=== PATIENT | female | born 1970 | race Two or more races ===

== ENCOUNTER 2024-07-06 06:12 | Outpatient (CLI) | payer OTHER ==
[2024-07-06 07:13] LABS: URINE APPEARANCE Clear; URINE BILIRRUBIN Negative (NEGATIVE); URINE BLOOD Negative; URINE COLOR Yellow; URINE GLUCOSE Negative (NEGATIVE); URINE KETONE Negative (NEGATIVE); URINE LEUKOCYTE Trace; URINE NITRATE Negative; URINE PROTEIN Negative (NEGATIVE); URINE UROBILINOGEN 0.2 E.U./dl
[2024-07-06 07:14] LABS: URINE BACTERIA 539.6 uL (0.0-1933); URINE EPITHELIAL CELLS 33.5 uL (0.0-38.8); URINE WBC 31.9 uL (0.0-23.2)
[2024-07-06 07:25] LABS: URINE RBC 1.6 uL (0.0-20.8)
[2024-07-06 08:04] LABS: HEMATOCRIT 40.3 % (36.0-45.00); HEMOGLOBIN 13.4 g/dL (12.0-15.00); MEAN CELL VOLUME 85.2 fL (80.00-100.00); MEAN CORPUSCULAR HEMOGLOBIN 28.3 pg (27.00-32.0); MEAN CORPUSCULAR HGB CONC 33.2 g/dl (32.0-36.0); PLATELET COUNT 230 K/uL (150-450); RED BLOOD COUNT 4.73 M/uL (4.00-6.00); RED CELL DISTRIBUTION WIDTH 12.6 % (11.5-14.5)
[2024-07-06 08:26] LABS: ALBUMIN 3.7 gm/dL (3.4-5.0); BILIRUBIN TOTAL 0.9 mg/dL (0.3-1.2); CALCIUM 9.1 mg/dL (8.5-10.1); CHOL HDL RATIO 3.5 (0-5.0); CREATININE SERUM 0.72 mg/dL (0.55-1.02); FREE TRIODOTIRONINE 3.02 pg/ml (2.18-3.98); GFR 84.73; GLOBULINA 3.4 G/DL (2.4-3.5); POTASSIUM 4.06 mEq/L (3.5-5.1); TOTAL PROTEIN 7.1 gm/dL (6.4-8.2); TSH 3.3 uIU/mL (0.358-3.74)
[2024-07-06 12:30] LABS: VITAMIN D3 25 HYDROXY 28.57 ng/ml (30-120)
[2024-07-07 09:05] LABS: ESTRADIOL SERUM 13.5 pg/mL (.)
== END 2024-07-06 06:17 | disposition home or self-care (01) ==
LOC: LAB 06:12
PROVIDERS: ATTEND Obstetrics & Gynecology
DX: N95.1 Menopausal and female climacteric states (principal); E03.8 Other specified hypothyroidism; I10 Essential (primary) hypertension; E55.9 Vitamin D deficiency, unspecified; D50.8 Other iron deficiency anemias

== ENCOUNTER 2025-01-07 11:21 | Emergency (ER) | payer OTHER ==
[~2025-01-07] VITALS: Ht 152.4 cm; Wt 71.7 kg
[2025-01-07] MEDS ORDERED: GUAIFENESIN 200 MG/10 ML BLIST.PACK PO ONE (12:15)
[2025-01-07] MEDS ORDERED: ACETAMINOPHEN 500 MG GEL..CAP PO ONE (12:15)
[2025-01-07 12:44] LABS: BASO % 0.8 % (0.1-1.2); EOS # 0.77 (0.04-0.54); EOS % 6.7 % (0.7-7.0); LYMPH # 2.49 (1.18-3.74); LYMPH % 21.8 % (19.3-53.1); MEAN PLATELET VOLUME 12.10 fl (9.4-12.4); MONO # 0.84 (0.24-0.82); MONO % 7.4 % (4.7-12.5); NEUT # 7.20 (1.56-6.13); NEUT % 63.0 % (34.0-71.1); RED CELL DISTRIBUTION WIDTH 12.8 % (11.6-14.4)
[2025-01-07 13:37] LABS: COVID-19 AG NEGATIVE (NEGATIVE)
== END 2025-01-07 14:23 | disposition home or self-care (01) ==
LOC: ER 11:21
PROVIDERS: General Practice
DX: J06.9 Acute upper respiratory infection, unspecified (principal); Z20.822 Contact with and (suspected) exposure to COVID-19

== ENCOUNTER 2025-04-14 10:01 | Emergency (ER) | payer OTHER ==
[~2025-04-14] VITALS: Ht 152.4 cm; Wt 72.6 kg
[2025-04-14 11:01] VITALS: BP 140/90; O2SAT 97
[2025-04-14] MEDS ORDERED: 0.9 % SODIUM CHLORIDE 1,000 ML IV ONE (12:15)
[2025-04-14] MEDS ORDERED: GUAIFENESIN 200 MG/10 ML BLIST.PACK PO ONE ×2 (12:15→13:09)
[2025-04-14] MEDS ORDERED: ALBUTEROL SULFATE 3 ML/2.5 MG AMPUL.NEB IH SCH (12:15)
[2025-04-14] MEDS ORDERED: METHYLPREDNISOLONE SOD SUCC 125 MG VIAL IV ONE (12:15)
[2025-04-14] MEDS ORDERED: IPRATROPIUM BROMIDE 0.5 MG/2.5 ML AMPUL.NEB IH ONE ×2 (12:15→13:12)
[2025-04-14] MEDS ORDERED: ACETAMINOPHEN 500 MG GEL..CAP PO ONE ×2 (12:15→13:09)
[2025-04-14] MEDS ORDERED: METHYLPREDNISOLONE SOD SUCC 125 MG VIAL ONE (13:09)
[2025-04-14] MEDS ORDERED: ALBUTEROL SULFATE 3 ML/2.5 MG AMPUL.NEB IH ONE (13:12)
[2025-04-14 15:37] LABS: BASO % 0.9 % (0.1-1.2); EOS # 0.40 (0.04-0.54); EOS % 5.2 % (0.7-7.0); LYMPH # 2.83 (1.18-3.74); LYMPH % 36.6 % (19.3-53.1); MEAN PLATELET VOLUME 12.20 fl (9.4-12.4); MONO # 0.84 (0.24-0.82); MONO % 10.9 % (4.7-12.5); NEUT # 3.58 (1.56-6.13); NEUT % 46.1 % (34.0-71.1); RED CELL DISTRIBUTION WIDTH 12.1 % (11.6-14.4)
[2025-04-14 16:31] LABS: COVID-19 AG NEGATIVE (NEGATIVE)
[2025-04-14 16:38] LABS: ALT/SGPT 30.0 U/L (12-78); AST/SGOT 24.0 U/L (15-37); BILIRUBIN TOTAL 0.89 mg/dL (0.3-1.2); BUN CREA RATIO 20.0 (7.0-25.0); CREATININE SERUM 0.74 mg/dL (0.55-1.02); GFR 81.78; GLOBULINA 4.3 G/DL (2.4-3.5); GLUCOSE FASTING 106.0 mg/dL (65-100); OSMOLALITY SERUM 286.0 MOSM/KG (275-295)
[2025-04-14] MEDS ORDERED: ZITHROMAX200 MG PO (16:52)
[2025-04-14] MEDS ORDERED: VANACOF DM LIQ240 ML PO (16:52)
[2025-04-14] MEDS ORDERED: PROAIR RESPICL90 MCG IH (16:52)
== END 2025-04-14 17:17 | disposition home or self-care (01) ==
LOC: ER 10:02
DX: B34.9 Viral infection, unspecified (principal); R05.8 Other specified cough; R50.9 Fever, unspecified; J06.9 Acute upper respiratory infection, unspecified; Z20.822 Contact with and (suspected) exposure to COVID-19